=== PATIENT | male | born 1955 | race Caucasian/White ===

== ENCOUNTER 2023-06-07 09:09 | Outpatient (CLI) | payer OTHER, SELFPAY ==
--- NOTE | 2023-06-07 09:37 | MR_ITS ---
WS: [id number] MRI LUMBAR SPINE NONCONTRAST HISTORY: CHRONIC LBP W/LEFT LEG NEUROPATHY COMPARISON: None available. TECHNIQUE: Sagittal and axial multisequence imaging is submitted. Mild increase in the thoracic kyphosis. Less than 2 mm retrolisthesis of L4. Mild disc space narrowing throughout the lumbar spine and desicc ation. No lumbar spine fracture. Small amount of reactive marrow edema in the superior endplate of L4 . Conus terminates normally at L1. L1-L2: Normal. L2-L3: Annular disc bulging with a moderate size LEFT foraminal disc protrusion. Smaller disc protrus ion RIGHT foramen. Mild encroachment upon the ventral thecal sac and subarticular recesses. Mild cent ral, bilateral subarticular recess, RIGHT foraminal and moderate LEFT foraminal stenosis. L3-L4: Diffuse annular disc bulging. Focal proximal LEFT foraminal disc protrusion effacing fat in th e foramina. There is contact on the LEFT L3 and L4 nerve roots. Mild RIGHT foraminal stenosis and mil d subarticular recess encroachment. L4-L5: Mild osteophytic ridging with moderate annular disc bulging. Ligamentum flavum and facet arthr itis. Mild central and LEFT foraminal stenosis. Moderate RIGHT foraminal stenosis due to combination of disc protrusion and osteophyte and facet disease. There is disc contact on the traversing L5 nerve roots. L5-S1: Rudimentary disc. Mild atherosclerosis aorta. No aneurysm. IMPRESSION: 1. 5 nonrib-bearing type vertebral bodies. Rudimentary L5-S1 disc. 2. L2-3: Moderate LEFT foraminal disc protrusion with moderate LEFT foraminal stenosis. Smaller disc in the RIGHT foramen. Mild central and bilateral subarticular recess stenosis. 3. L3-4: Proximal LEFT foraminal disc protrusion. There is significant disc contact on the LEFT L3 an d L4 nerve roots. Mild RIGHT foraminal and subarticular recess encroachment. 4. L4-5: Moderate RIGHT foraminal stenosis due to disc, osteophyte and facet disease. Mild central an d LEFT foraminal stenosis
== END 2023-06-07 09:10 | disposition home or self-care (01) ==
LOC: RAD 09:16
PROVIDERS: PCP Nurse Practitioner; Visit Provider Family Medicine
DX: M54.50 Low back pain, unspecified (principal); G57.92 Unspecified mononeuropathy of left lower limb; M51.36 Other intervertebral disc degeneration, lumbar region
CPT/HCPCS: 72148

== ENCOUNTER → 2024-07-31 14:07 | Outpatient (BNVA) | payer OTHER, SELFPAY | PROVIDERS: PCP Nurse Practitioner; Referring Provider Nurse Practitioner; Visit Provider Student in an Organized Health Care Education/Training Program | DX: D64.9 Anemia, unspecified (principal); D50.9 Iron deficiency anemia, unspecified | CPT/HCPCS: 99204 ==

== ENCOUNTER 2024-09-11 08:31 | Day surgery (SDC) | payer OTHER, SELFPAY ==
[2024-09-11 08:53] VITALS: BP 159/103; PULSE 103; RESP 18; TEMP 36.1; O2SAT 99
[2024-09-11] MEDS: sodium chloride 0.9% 500 ML 15 ML IV (09:00)
--- NOTE | 2024-09-11 09:46 | ANES.PREANE2 ---
Pre-Anesthetic Assessment Height/Weight: Weight 59.874 kg Temp Pulse Resp BP Pulse Ox O2 Del Method 97 F L 103 H 18 159/103 99 Room Air 09/11/24 08:53 09/11/24 08:53 09/11/24 08:53 09/11/24 08:53 09/11/24 08:53 09/11/24 08:53 Preop Diagnosis: Iron Deficiency Anemia Operation Date: 09/11/24 10:00 Proposed Procedures p EGD 87845, 06993, G0105, D64.9, D50.9(Not Applicable) - Jose Miles MD s Colonoscopy(Not Applicable) - Jose Miles MD Familial anesthetic complications: none Was Beta Larry taken within 24 hours: N/A Was Clonidine taken within 24 hours: N/A Last intake: Intake Last Liquid Date 09/10/24 Last Liquid Time 23:00 Last Solid Date 09/09/24 Last Solid Time 18:00 Social Alcohol (0-2 beer per day) and Tobacco cannabis- everyday- none today per patient Exam alert, oriented x 3, clear to auscultation bilaterally and regular rate & rhythm Airway Submandibular: within normal limits Cervical ROM: within normal limits Mallampati: Class II Dentition: chipped and loose Comments: Comments: multiple very poor dentition. 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 Patient is not followed by cardiology, states he saw his PCP last month. None reported Hepatic None reported GI Gastroesophageal Reflux Disease Metabolic Hyperlipidemia and None reported Musc/skel None reported Neuropsych None reported Anesthetic Plan ASA status: 3 Anesthesia: MAC Medications/Allergies Home Medications Medication Instructions Recorded Confirmed Last Taken Type albuterol sulfate 90 mcg/actuation 1 inh inhalation QID PRN Shortness 07/31/24 09/11/24 09/11/24 History aerosol inhaler Of Breath Or Wheezing atorvastatin 40 mg tablet 40 mg PO QPM 07/31/24 09/11/24 09/10/24 History cholecalciferol (vitamin D3) 50 50 mcg PO QPM 07/31/24 09/11/24 09/10/24 History mcg (2,000 unit) capsule lisinopril 10 mg tablet 10 mg PO QPM 07/31/24 09/11/24 09/10/24 History pregabalin 50 mg capsule (Lyrica) 50 mg PO DAILY 07/31/24 09/11/24 09/10/24 History aspirin 81 mg capsule 81 mg PO QPM 09/08/24 09/11/24 09/10/24 History Allergies Allergy/AdvReac Type Severity Reaction Status Date / Time No Known Allergies Allergy Unverified 09/08/24 09:34 Current Medications Generic Name Dose Route Start Last Admin Trade Name Freq PRN Reason Stop Dose Admin Sodium Chloride 500 mls @ 15 mls/hr 09/11/24 08:52 09/11/24 09:00 Sodium Chloride 0.9% IV 09/12/24 08:51 15 mls/hr .Q24H PRN Administration COLONOSCOPY FLUIDS PFSH Anesthesia Family History (Updated 07/31/24 @ 14:35 by ARIELA Guerrero) Father Diabetes Social History (Updated 07/31/24 @ 14:35 by ARIELA Guerrero) Smoking and tobacco/nicotine status: current every day tobacco/nicotine user cigarettes Alcohol intake: current Alcohol intake frequency: 0-2 Drinks per Day Alcohol type: beer Data Anesthesia Cardiac Studies: No Data to Display
--- NOTE | 2024-09-11 09:58 | W.PM.OPSFHP ---
Same Day Surgery H&P Indication for Procedure/HPI DATE OF PROCEDURE: September 11, 2024 CHIEF COMPLAINT/INDICATIONFOR SURGICAL PROCEDURE: iron deficiency anemia PREOP DIAGNOSIS: Iron Deficiency Anemia PLANNED PROCEDURE: Operation Date: 09/11/24 10:00 Proposed Procedures p EGD 36253, 41916, G0105, D64.9, D50.9(Not Applicable) - Jose Miles MD s Colonoscopy(Not Applicable) - Jose Miles MD Medications/Allergies* Home Medications Medication Instructions Recorded Confirmed Type albuterol sulfate 90 mcg/actuation 1 inh inhalation QID PRN Shortness 07/31/24 09/11/24 History aerosol inhaler Of Breath Or Wheezing atorvastatin 40 mg tablet 40 mg PO QPM 07/31/24 09/11/24 History cholecalciferol (vitamin D3) 50 50 mcg PO QPM 07/31/24 09/11/24 History mcg (2,000 unit) capsule lisinopril 10 mg tablet 10 mg PO QPM 07/31/24 09/11/24 History pregabalin 50 mg capsule (Lyrica) 50 mg PO DAILY 07/31/24 09/11/24 History aspirin 81 mg capsule 81 mg PO QPM 09/08/24 09/11/24 History Allergies/Adverse Reactions Allergy/AdvReac Type Severity Reaction Status Date / Time No Known Allergies Allergy Unverified 09/08/24 09:34 Current Medications: Generic Name Dose Route Start Last Admin Trade Name Freq PRN Reason Stop Dose Admin Sodium Chloride 500 mls @ 15 mls/hr 09/11/24 08:52 09/11/24 09:00 Sodium Chloride 0.9% IV 09/12/24 08:51 15 mls/hr .Q24H PRN Administration COLONOSCOPY FLUIDS Pertinent History/Comorbid Conditions* Family History (Updated 07/31/24 @ 14:35 by ARIELA Guerrero) Father Diabetes Father Social History Smoking and tobacco/nicotine status: current every day tobacco/nicotine user cigarettes Alcohol intake: current Alcohol intake frequency: 0-2 Drinks per Day Alcohol type: beer Pertinent Exam Findings alert, oriented x 3, clear to auscultation bilaterally, regular rate & rhythm and procedure specific exam findings abdomen soft, nt, nd Recommendations Surgery/Procedure today Coding Level of Care Code Acute Code for Chg Fwd
[2024-09-11 10:53] VITALS: BP 126/71; PULSE 69; RESP 14; TEMP 36.6; O2SAT 99
--- NOTE | 2024-09-11 10:55 | ECG_ITS ---
[facility]: [facility]24[facility]11 Pat Name: Shilo Castañeda Department: Room: Gender: Male [employer] Lead: : 1955 Requested By: Lasha Dallas Order Number: [id number] Quezada MD: Jak Licona M.D. Measurements Intervals [place] Rate: 62 P: 77 [place]: 152 QRS: 52 QRSD: 97 T: 61 QT: 401 QTc: 410 Interpretive Statements SINUS RHYTHM No previous ECG available for comparison Electronically Signed On 09-12-2024 18:40:35 BRILLIANDEER LOOPER by Jak Licona M.D. [id number]
--- NOTE | 2024-09-11 11:30 | ANE.PACU2 ---
Inpatient post-anesthesia follow up: Airway intact: Yes Vital signs: Temperature 97.8 F Pulse Rate 69 Respiratory Rate 14 Blood Pressure 126/71 Pulse Oximetry 99 Oxygen Delivery Me thod Room Air Oxygen Flow Rate Fraction of Inspir ed Oxygen Hydration adequate: Yes Nausea and vomiting: No Pain level: 1 Mental status: Baseline
== END 2024-09-11 11:30 | disposition home or self-care (01) ==
PROVIDERS: PCP Nurse Practitioner; Visit Provider Student in an Organized Health Care Education/Training Program
PROC: 0DJ08ZZ Inspection of Upper Intestinal Tract, Via Natural or Artificial Opening Endoscopic (ICD-10-PCS; principal; 2024-09-11 10:00)
PROC: 0DJD8ZZ Inspection of Lower Intestinal Tract, Via Natural or Artificial Opening Endoscopic (ICD-10-PCS; CPT 45378; 2024-09-11 10:00)
DX: D50.9 Iron deficiency anemia, unspecified (principal); D12.8 Benign neoplasm of rectum; D12.0 Benign neoplasm of cecum; K29.70 Gastritis, unspecified, without bleeding; J44.9 Chronic obstructive pulmonary disease, unspecified; I10 Essential (primary) hypertension; K21.9 Gastro-esophageal reflux disease without esophagitis; E78.5 Hyperlipidemia, unspecified; F17.210 Nicotine dependence, cigarettes, uncomplicated; Z79.82 Long term (current) use of aspirin
CPT/HCPCS: 43239; 45380; 45385; 88305; 93005; J2704; J3490; J7040

== ENCOUNTER 2024-09-23 10:44 | Emergency (ER) | payer OTHER, SELFPAY ==
[2024-09-23] VITALS (7 sets, daily range): BP systolic 136–156; BP diastolic 88–109; PULSE 96–110; RESP 20–26; TEMP 36.8; O2SAT 97–100; BMI 19.1
--- NOTE | 2024-09-23 11:04 | PC.PHAR ---
[facility]
--- NOTE | 2024-09-23 11:09 | XRR_ITS ---
PROCEDURE INFORMATION: Exam: XR Chest Exam date and time: 09/23/2024 11:12 AM Age: 69 years old Clinical indication: Cough and dyspnea; Prior surgery; Surgery date: 6+ months; Surgery type: Mitral valve; Additional info: Cough, body aches TECHNIQUE: Imaging protocol: Radiologic exam of the chest. Views: 1 view. COMPARISON: No relevant prior studies available. FINDINGS: Tubes, catheters and devices: None. Lungs: Pulmonary emphysema identified within the lungs. The lungs appear otherwise clear. Pleural spaces: No pleural effusion. No pneumothorax. Heart/Mediastinum: Evidence for cardiac valve replacement surgery. The mediastinum appears otherwise unremarkable. Vasculature: Moderate to severe atherosclerotic calcification demonstrated within the aorta. Bones/joints: Sternotomy wires, hardware is demonstrated. Diffusely decreased bone density. Generalized bony degenerative changes. XR/XR chest 1V portable [id number] IMPRESSION: 1. Pulmonary emphysema. 2. Degenerative and postsurgical changes are demonstrated, as described above.
--- NOTE | 2024-09-23 11:10 | W.ED.GENADLT ---
HPI - General Adult General: Chief complaint: Shortness of Breath/Dyspnea Stated complaint: Tachy x 1 week Time Seen by Provider: 09/23/24 10:47 Source: patient Mode of arrival: ambulatory Limitations: no limitations History of Present Illness: Patient is a 69-year-old male presents to ED today with complaint of chills/sweats, body aches, subjective fevers, congestion, cough. Symptoms started around 09/13 after he underwent a diagnostic EGD and colonoscopy for iron deficiency anemia. Patient had a few polyps removed as well as a cecal biopsy for malignant appearing lesion. Patient states since the biopsy he has not had any abdominal pain. He is not having any bloody or black/tarry stools. He has not had any emesis. He was reportedly seen at the ID because he was slightly tachycardic, they referred him to the emergency department for further evaluation. Patient is not having any chest pain. He has had nonproductive cough/chest congestion. Onset (ago): day(s) Relieving factors: none Exacerbating factors: none Associated symptoms: Reports nausea; Deny chest pain, dyspnea, headache(s), rash, palpitations, syncope or vomiting Treatments prior to arrival: none Related Data Home Medications Medication Instructions Recorded Confirmed albuterol sulfate 90 mcg/actuation 1 inh inhalation QID PRN Shortness 07/31/24 09/23/24 aerosol inhaler Of Breath Or Wheezing atorvastatin 40 mg tablet 40 mg PO QPM 07/31/24 09/23/24 cholecalciferol (vitamin D3) 50 50 mcg PO QPM 07/31/24 09/23/24 mcg (2,000 unit) capsule lisinopril 10 mg tablet 10 mg PO QPM 07/31/24 09/23/24 aspirin 81 mg capsule 81 mg PO QPM 09/08/24 09/23/24 enoxaparin 60 mg/0.6 mL 57 mg SUBCUT Q12H 09/23/24 09/23/24 subcutaneous syringe pregabalin 75 mg capsule 75 mg PO BID 09/23/24 09/23/24 warfarin 5 mg tablet See Rx Instructions .Route .COMPLEX 09/23/24 09/23/24 Previous Rx's Medication Instructions Recorded pantoprazole 40 mg tablet,delayed 40 mg PO DAILY 6 weeks #42 tabs 09/11/24 release (Protonix) dexamethasone 6 mg tablet 6 mg PO DAILY #6 tabs 09/23/24 Allergies Allergy/AdvReac Type Severity Reaction Status Date / Time No Known Allergies Allergy Unverified 09/08/24 09:34 Review of Systems Const: Reports: fever(s) (subjective), chills and body aches Eyes: Denies: change in vision, blurry vision or photophobia ENMT: Reports: nasal congestion; Denies: ear or mastoid pain, nasal discharge or sinus pain Card: Denies: chest pain, palpitations, irregular heart rhythm, lightheadedness, syncope or dyspnea on exertion Resp: Reports: non-productive cough and chest congestion; Denies: dyspnea, productive cough, wheezing, pain on inspiration or hemoptysis GI: Reports: nausea; Denies: abdominal pain, vomiting, heartburn or diarrhea : Denies: flank pain, difficulty urinating or dysuria Musc: Denies: neck pain, back pain, extremity pain, extremity swelling or joint pain Skin/Breast: Denies: rash Neuro: Denies: headache(s), numbness in extremities, weakness in extremities, sensory changes or dizziness PFSH ED PFSH: Family History Father Diabetes Social History Smoking and tobacco/nicotine status: current every day tobacco/nicotine user cigarettes Alcohol intake: current Alcohol intake frequency: 0-2 Drinks per Day Alcohol type: beer Physical Exam Const: COMMON NORMALS: no acute distress, average body habitus, patient oriented x3, no limitations, alert and well nourished GENERAL APPEARANCE: cooperative ORIENTATION/CONSCIOUSNESS: Yes awake, Yes oriented to person, Yes oriented to place and Yes oriented to time HENMT: COMMON NORMALS: normocephalic and atraumatic HEAD & SCALP: normocephalic and atraumatic Neck/C-Spine: COMMON NORMALS: full ROM, no lymphadenopathy, supple and no meningeal signs Chest: COMMONS NORMALS: normal inspection of the chest and normal palpation of entire chest wall Resp: COMMON NORMALS: normal respiratory effort and clear to auscultation bilaterally AUSCULTATION: clear to auscultation bilaterally Cardio: COMMON NORMALS: regular rate RATE: regular rate and tachycardic (mild 102) GI: COMMON NORMALS: Normal to inspection, nondistended, normoactive bowel sounds present, Soft to palpation, non-tender, No hepatosplenomegaly present and no masses PALPATION: Yes Soft to palpation and Yes No hepatosplenomegaly present : COMMON NORMALS: Yes no CVA tenderness BLADDER/KIDNEY EXAM: Yes no CVA tenderness Back/Pelvis: COMMON NORMALS: no CVA tenderness and thoracic and lumbar spine normal to inspection Extremity: COMMON NORMALS: normal to inspection, no clubbing, cyanosis or edema, no calf tenderness and no pedal edema GENERAL: Yes normal exam except as noted Neuro: COMMON NORMALS: patient oriented x3, moves all extremities, no focal motor deficits and no sensory deficits noted SENSORIUM/ORIENTATION: Yes alert, Yes oriented to person, Yes oriented to place and Yes oriented to time MENINGEAL SIGNS: Yes no meningeal signs Skin: COMMON NORMALS: no rashes or lesions noted GENERAL SKIN EXAM: no rashes or lesions noted Course Vital Signs: Vital signs: Vital Signs Temperature 98.3 F 09/23/24 10:45 Pulse Rate 101 H 09/23/24 13:30 Respiratory Rate 26 H 09/23/24 13:30 Blood Pressure 156/92 09/23/24 13:30 Pulse Oximetry 99 09/23/24 13:30 Oxygen Delivery Me thod Room Air 09/23/24 13:30 [facility] - General Adult Medical Decision Making Patient is a 69-year-old male here for chills/sweats, body aches, subjective fevers, congestion, cough. Vital signs are stable. At times he has been very minimally tachycardic-worse the postional change. His CXR is unremarkable. He is a daily smoker. He does have chronic pulmonary emphysema. Blood work overall is nonactionable. He has a normal white count. His procalcitonin is normal. He is therapeutic on his INR (takes this for mechanical heart valve). He is not having any chest pain or palpitations. Chemistry overall is unremarkable. Mild elevation of his gap at 22. UA does not appear acutely infected. He does appear somewhat dehydrated. Recommending oral hydration at home. He is not having any vomiting. Due to IV national fluid shortage and restrictions he was not given IV fluids here. He does have some blood in his urine. He has not had any abdominal pain. Again he is an everyday smoker. [facility] This continues, recommend cystoscopy. Respiratory panel collected and he did test positive for COVID-19. Outside window for Paxlovid. Will place on Dexamethasone. Return precautions discussed. Medical Records I reviewed the patient's medical records. Lab Data I reviewed the patient's lab results. 09/23/24 11:20 09/23/24 11:20 Radiology Impressions Chest X-Ray 09/23/24 11:09 IMPRESSION: 1. Pulmonary emphysema. 2. Degenerative and postsurgical changes are demonstrated, as described above. Laboratory Results WBC 7.88 10^3/uL (3.29-11.43) 09/23/24 11:20 RBC 4.54 10^6/uL (3.85-5.65) 09/23/24 11:20 Hgb 14.30 g/dL (11.27-16.99) 09/23/24 11:20 Hct 41.1 % (37-53) 09/23/24 11:20 MCV 90.5 fl (82-101) 09/23/24 11:20 MCH 31.5 pg (27-33) 09/23/24 11:20 MCHC 34.8 g/dL (30-55) 09/23/24 11:20 RDW 11.6 % (12.1-15.1) L 09/23/24 11:20 Plt Count 316 10^3/cmm (157-399) 09/23/24 11:20 MPV 9.9 fL (7.4-10.4) 09/23/24 11:20 Neut % (Auto) 72.2 % 09/23/24 11:20 Lymph % (Auto) 14.1 % 09/23/24 11:20 Butts % (Auto) 12.2 % 09/23/24 11:20 Eos % (Auto) 0.5 % 09/23/24 11:20 Baso % (Auto) 0.6 % 09/23/24 11:20 Neut # (Auto) 5.69 10^3/uL (1.8-7.7) 09/23/24 11:20 Lymph # (Auto) 1.1 10^3/uL (0.8-4.8) 09/23/24 11:20 Butts # (Auto) 1.0 10^3/uL (0.2-0.9) H 09/23/24 11:20 Eos # (Auto) 0.0 10^3/uL (0.0-0.8) 09/23/24 11:20 Baso # (Auto) 0.1 10^3/uL (0.0-0.1) 09/23/24 11:20 Nucleated RBC % (auto) 0 % 09/23/24 11:20 Nucleated RBCs # 0.0 /100WBC 09/23/24 11:20 PT 34.70 SECONDS (12.1-14.9) H 09/23/24 11:20 INR 3.23 (0.8-1.2) H 09/23/24 11:20 Sodium 138 mmol/L (136-145) 09/23/24 11:20 Potassium 4.1 mmol/L (3.5-5.1) 09/23/24 11:20 Chloride 101 mmol/L (98-107) 09/23/24 11:20 Carbon Dioxide 19 mmol/L (22-29) L 09/23/24 11:20 Anion Gap 22.1 (5-19) H 09/23/24 11:20 BUN 16 mg/dL (8-23) 09/23/24 11:20 Creatinine 0.7 mg/dL (0.7-1.2) 09/23/24 11:20 GFR Calculation 112.1 mL/min (90-130) 09/23/24 11:20 Glucose 84 mg/dL (65-115) 09/23/24 11:20 Calculated Osmolality 286 mOsm/kg (285-295) 09/23/24 11:20 Calcium 9.5 mg/dL (8.5-10.5) 09/23/24 11:20 Total Bilirubin 0.8 mg/dL (0.15-1.2) 09/23/24 11:20 AST 19 U/L (0-40) 09/23/24 11:20 ALT 8 U/L (0-41) 09/23/24 11:20 Alkaline Phosphatase 92 U/L (40-130) 09/23/24 11:20 Total Protein 7.2 g/dL (6.6-8.7) 09/23/24 11:20 Albumin 4.5 g/dL (3.5-5.2) 09/23/24 11:20 Globulin 2.7 g/dL (1.3-4.6) 09/23/24 11:20 Procalcitonin 0.06 ng/mL (0-0.5) 09/23/24 11:20 Urine Color Dark yellow (Yellow) A 09/23/24 13:10 Urine Appearance Clear (CLEAR) 09/23/24 13:10 Urine pH 6.0 (5-7) 09/23/24 13:10 Ur Specific White 1.031 (1.005-1.030) H 09/23/24 13:10 Urine Protein 2+ (Negative) A 09/23/24 13:10 Urine Glucose (UA) Negative (Normal) 09/23/24 13:10 Urine Ketones 4+ (Negative) 09/23/24 13:10 Urine Blood Negative (Negative) 09/23/24 13:10 Urine Nitrate Negative (Negative) 09/23/24 13:10 Urine Bilirubin 2+ (Negative) H 09/23/24 13:10 Urine Urobilinogen 1.0 mg/dL (Negative) 09/23/24 13:10 Ur Leukocyte Esterase Negative (Negative) 09/23/24 13:10 Urine RBC 21-50 /hpf (0-2) H 09/23/24 13:10 Urine WBC 0-5 /hpf (0-5) 09/23/24 13:10 Ur Squamous Epith Cells 0-5 /hpf (0-5) 09/23/24 13:10 Amorphous Sediment Not Reportable 09/23/24 13:10 Urine Bacteria None seen /hpf (NONE) 09/23/24 13:10 Hyaline Casts 12.81 /lpf 09/23/24 13:10 Adenovirus (PCR) Not detected (NOT DETECT) 09/23/24 12:07 C. pneumoniae DNA (PCR) Not detected (NOT DETECT) 09/23/24 12:07 Coronavirus 229E (PCR) Not detected (NOT DETECT) 09/23/24 12:07 Human Metapneumovir PCR Not detected (NOT DETECT) 09/23/24 12:07 Influenza A (H1) PCR Not detected (NOT DETECT) 09/23/24 12:07 Influ A (H1/09) PCR Not detected (NOT DETECT) 09/23/24 12:07 Influenza A (H3) PCR Not detected (NOT DETECT) 09/23/24 12:07 Influenza Type A Ag negative (Negative) 09/23/24 11:14 Influenza Type A (PCR) Not detected (NOT DETECT) 09/23/24 12:07 Influenza Type B Ag negative (Negative) 09/23/24 11:14 Influenza Type B (PCR) Not detected (NOT DETECT) 09/23/24 12:07 M. pneumoniae (PCR) Not detected (NOT DETECT) 09/23/24 12:07 Parainfluenza 1 (PCR) Not detected (NOT DETECT) 09/23/24 12:07 Parainfluenza 2 (PCR) Not detected (NOT DETECT) 09/23/24 12:07 Parainfluenza 3 (PCR) Not detected (NOT DETECT) 09/23/24 12:07 Parainfluenza 4 (PCR) Not detected (NOT DETECT) 09/23/24 12:07 RSV Type A (PCR) Not detected (NOT DETECT) 09/23/24 12:07 RSV Type B (PCR) Not detected (NOT DETECT) 09/23/24 12:07 Entero/Rhino (PCR) Not detected (NOT DETECT) 09/23/24 12:07 SARS-CoV-2 (PCR) Detected (NOT DETECT) A 09/23/24 12:07 SARS-CoV-2 Ag (Rapid) negative (Negative) 09/23/24 11:14 All radiology interpretation(s) finalized by discharge Discharge Plan Discharge Patient Disposition: Home Clinical Impression: Dehydration, COVID-19, Hematuria Condition: Stable Prescriptions: New dexamethasone 6 mg tablet 6 mg PO DAILY Qty: 6 0RF No Action lisinopril 10 mg tablet 10 mg PO QPM atorvastatin 40 mg tablet 40 mg PO QPM albuterol sulfate 90 mcg/actuation HFA aerosol inhaler 1 inh inhalation QID PRN (Reason: Shortness Of Breath Or Wheezing) cholecalciferol (vitamin D3) 50 mcg (2,000 unit) capsule 50 mcg PO QPM warfarin 5 mg Tablet See Rx Instructions .ROUTE .COMPLEX Rx Instructions: take 7.5 mg by mouth on tuesdays and take 5mg tablet on all other days enoxaparin 60 mg/0.6 mL Syringe 57 mg SUBCUT Q12H pregabalin 75 mg Capsule 75 mg PO BID aspirin 81 mg Capsule 81 mg PO QPM pantoprazole [Protonix] 40 mg tablet,delayed release (DR/EC) 40 mg PO DAILY 42 Days Qty: 42 0RF Discharge Orders: Discharge ED (Routine); Ordered 09/23/24 Ordered By: Belkys Livingston Referrals: Mary Kate Kim, PHOTOENGRAVER [Primary Care Provider] - Patient Instructions: COVID-19 (Coronavirus Disease 2019) (ED) Activity Restrictions/Additional Instructions: As we discussed, I recommend pushing fluids at home as much as possible as there is concern for mild dehydration. Remainder of symptoms are related to COVID-19. Patient may return to the emergency department for any worsening symptoms or concerns you may have. I hope he begins to feel better soon. Coding Level of Care Code ED Supervisor Customer Services for Arslan Greco
[2024-09-23 11:31] LABS: Basophils # 0.1 10^3/uL (0.0-0.1); Basophils % 0.6 %; Eosinophils % 0.5 %; Hematocrit 41.1 % (37-53); Lymphocytes # 1.1 10^3/uL (0.8-4.8); Lymphocytes % 14.1 %; Mean Corpuscular HGB Conc 34.8 g/dL (30-55); Mean Corpuscular Hemoglobin 31.5 pg (27-33); Mean Corpuscular Volume 90.5 fl (82-101); Mean Platelet Volume 9.9 fL (7.4-10.4); Monocytes % 12.2 %; Neutrophils # 5.69 10^3/uL (1.8-7.7); Neutrophils % 72.2 %; Nucleated Red Blood Cells % 0 %; Platelet Count 316 10^3/cmm (157-399); Red Blood Count 4.54 10^6/uL (3.85-5.65); Red Cell Distribution Width 11.6 % (12.1-15.1); White Blood Count 7.88 10^3/uL (3.29-11.43)
[2024-09-23 11:35] LABS: Influenza A by IFA negative (Negative); Influenza B by IFA negative (Negative)
[2024-09-23 11:36] LABS: SARS Covid-2 Antigen negative (Negative)
[2024-09-23 11:55] LABS: INR 3.23 (0.8-1.2)
[2024-09-23 12:01] LABS: Slide Review Slide Review Perform
[2024-09-23 12:04] LABS: Alanine Aminotransferase 8 U/L (0-41); Albumin Level 4.5 g/dL (3.5-5.2); Alkaline Phosphatase 92 U/L (40-130); Anion Gap 22.1 (5-19); Aspartate Amino Transferase 19 U/L (0-40); Blood Urea Nitrogen 16 mg/dL (8-23); Calcium 9.5 mg/dL (8.5-10.5); Carbon Dioxide 19 mmol/L (22-29); Chloride 101 mmol/L (98-107); Globulin 2.7 g/dL (1.3-4.6); Glomerular Filtration Rate 112.1 mL/min (90-130); Glucose 84 mg/dL (65-115); Osmolality Calculated 286 mOsm/kg (285-295); Potassium 4.1 mmol/L (3.5-5.1); Sodium 138 mmol/L (136-145); Total Bilirubin 0.8 mg/dL (0.15-1.2); Total Protein 7.2 g/dL (6.6-8.7)
[2024-09-23 12:10] LABS: Procalcitonin 0.06 ng/mL (0-0.5)
--- NOTE | 2024-09-23 12:10 | ECG_ITS ---
[employer] Test Date: 2024-09-23 Pat Name: Shilo Castañeda Department: Room: Gender: Male [employer]icer: : 1955 Requested By: Belkys Livingston Order Number: [id number] Quezada MD: Jak Licona M.D. Measurements Intervals [place] Rate: 94 P: 78 [place]: 121 QRS: 71 QRSD: 79 T: 67 QT: 354 QTc: 444 Interpretive Statements SINUS RHYTHM POSSIBLE LEFT ATRIAL ENLARGEMENT [-0.1mV P-WAVE IN V1/V2] SEPTAL MYOCARDIAL INFARCTION , OF INDETERMINATE AGE [40+ ms Q WAVE IN V1/V2] Compared to ECG 09/11/2024 10:55:25 Myocardial infarct finding now present Electronically Signed On 09-23-2024 21:20:13 RN TRANSITIONAL by Jak Licona M.D. [id number]
[2024-09-23 13:35] LABS: Bilirubin Urine 2+ (Negative); Blood Urine Negative (Negative); Glucose Urine UA Negative (Normal); Ketones Urine 4+ (Negative); Leukocyte Esterase Urine Negative (Negative); Nitrate Urine Negative (Negative); Protein Urine 2+ (Negative); Urine Appearance Clear (CLEAR); Urine Color Dark Yellow (Yellow)
[2024-09-23 13:40] LABS: Add Urine Microscopic? YES; Bacteria Urine None Seen /hpf; Hyaline Casts Urine 12.81 /lpf; RBC Urine 21-50 /hpf (0-2); Squamous Epithelial Cell Urine 0-5 /hpf (0-5); WBC Urine 0-5 /hpf (0-5)
[2024-09-23 13:51] LABS: Specific Gravity, Urine 1.031 (1.005-1.030)
[2024-09-23 13:52] LABS: UA Slide Review UA Slide Review Perf
[2024-09-23 14:05] LABS: Adenovirus Not Detected (NOT DETECT); Chlamydia Pneumoniae Not Detected (NOT DETECT); Coronavirus 229E,HKU1,NL63,OC4 Not Detected (NOT DETECT); Human Metapneumovirus Not Detected (NOT DETECT); Human Rhinovirus/Enterovirus Not Detected (NOT DETECT); Influenza A Not Detected (NOT DETECT); Influenza A H1 Not Detected (NOT DETECT); Influenza A H1-2009 Not Detected (NOT DETECT); Influenza A H3 Not Detected (NOT DETECT); Influenza B Not Detected (NOT DETECT); Mycoplasma Pneumoniae Not Detected (NOT DETECT); Parainfluenza Virus Type 1 Not Detected (NOT DETECT); Parainfluenza Virus Type 2 Not Detected (NOT DETECT); Parainfluenza Virus Type 3 Not Detected (NOT DETECT); Parainfluenza Virus Type 4 Not Detected (NOT DETECT); Respiratory Syncytial Virus A Not Detected (NOT DETECT); Respiratory Syncytial Virus B Not Detected (NOT DETECT)
[2024-09-23 14:11] LABS: SARS-COV-2 Detected (NOT DETECT)
== END 2024-09-23 14:35 | disposition home or self-care (01) ==
PROVIDERS: Emergency Provider Physician Assistant; PCP Nurse Practitioner
DX: E86.0 Dehydration (principal); U07.1 COVID-19; R31.9 Hematuria, unspecified; Z11.52 Encounter for screening for COVID-19; Z79.01 Long term (current) use of anticoagulants; Z79.82 Long term (current) use of aspirin; F17.210 Nicotine dependence, cigarettes, uncomplicated
CPT/HCPCS: 71045; 80053; 81001; 84145; 85025; 85610; 87426; 87486; 87581; 87633; 87804; 93005; 99285

== ENCOUNTER 2024-11-06 09:26 | Oncology outpatient (recurring) (ONCR) | payer OTHER, SELFPAY ==
[2024-11-06 10:39] LABS: Basophils # 0.1 10^3/uL (0.0-0.1); Basophils % 1.6 %; Eosinophils # 0.1 10^3/uL (0.0-0.8); Eosinophils % 2.4 %; Hematocrit 33.2 % (37-53); Lymphocytes # 0.8 10^3/uL (0.8-4.8); Lymphocytes % 14.2 %; Mean Corpuscular HGB Conc 33.7 g/dL (30-55); Mean Platelet Volume 9.4 fL (7.4-10.4); Monocytes # 0.7 10^3/uL (0.2-0.9); Monocytes % 11.8 %; Neutrophils # 4.03 10^3/uL (1.8-7.7); Neutrophils % 69.8 %; Nucleated Red Blood Cells % 0 %; Platelet Count 256 10^3/cmm (157-399); Red Blood Count 3.61 10^6/uL (3.85-5.65); Red Cell Distribution Width 12.6 % (12.1-15.1); Reticulocyte % 1.4 % (0.5-2.0); White Blood Count 5.77 10^3/uL (3.29-11.43)
[2024-11-06 10:55] LABS: Carcinoembryonic Antigen 1.3 ng/mL (0.0-4.7)
[2024-11-06 11:06] LABS: Alanine Aminotransferase 12 U/L (0-41); Albumin Level 3.9 g/dL (3.5-5.2); Alkaline Phosphatase 111 U/L (40-130); Anion Gap 16.7 (5-19); Aspartate Amino Transferase 26 U/L (0-40); Blood Urea Nitrogen 6 mg/dL (8-23); Calcium 8.7 mg/dL (8.5-10.5); Carbon Dioxide 23 mmol/L (22-29); Chloride 94 mmol/L (98-107); Creatinine Clr Calc Pharmacy 80.4195; Globulin 2.7 g/dL (1.3-4.6); Glomerular Filtration Rate 112.1 mL/min (90-130); Glucose 108 mg/dL (65-115); Lactate Dehydrogenase 250 U/L (135-225); Osmolality Calculated 266 mOsm/kg (285-295); Potassium 4.7 mmol/L (3.5-5.1); Sodium 129 mmol/L (136-145); Total Bilirubin 0.4 mg/dL (0.15-1.2); Total Protein 6.6 g/dL (6.6-8.7)
[2024-11-06 11:42] LABS: Ferritin 30 ng/mL (30-400); Iron 33 ug/dL (59-158); Percent Saturation 10.1 % (20-50); Total Iron Binding Capacity 324 mcg/dl; Unsaturated Iron Binding 291 ug/dL (112-347)
[2024-11-06 11:57] LABS: Vitamin B12 544 pg/mL (232-1245)
[2024-11-06 12:22] LABS: Folate Level 14.4 ng/mL (4.5-32.2)
== END 2024-11-14 23:59 | disposition home or self-care (01) ==
PROVIDERS: PCP Nurse Practitioner; Visit Provider Internal Medicine
DX: K63.89 Other specified diseases of intestine (principal); R68.89 Other general symptoms and signs; D50.9 Iron deficiency anemia, unspecified; F17.210 Nicotine dependence, cigarettes, uncomplicated; Z95.2 Presence of prosthetic heart valve; Z79.01 Long term (current) use of anticoagulants; Z71.6 Tobacco abuse counseling
CPT/HCPCS: 36415; 80053; 82378; 82607; 82728; 82746; 83540; 83550; 83615; 85025; 85045; 99204

== ENCOUNTER → 2024-11-26 15:11 | Outpatient (BNVA) | payer OTHER, SELFPAY | PROVIDERS: PCP Nurse Practitioner; Visit Provider Internal Medicine Cardiovascular Disease | DX: Z95.2 Presence of prosthetic heart valve (principal); I35.9 Nonrheumatic aortic valve disorder, unspecified | CPT/HCPCS: 99214 ==

== ENCOUNTER 2024-11-27 12:28 | Oncology outpatient (recurring) (ONCR) | payer OTHER, SELFPAY ==
[2024-11-20] MEDS: iohexol 350 mg/mL 500 mL Btl (per mL) IV (10:33)
[2024-11-20] MEDS: iohexol 350 mg/mL 500 mL Btl (per mL) PO (10:33)
--- NOTE | 2024-11-20 10:45 | CTR_ITS ---
PROCEDURE INFORMATION: Exam: CT Chest With Contrast; Diagnostic Exam date and time: 11/20/2024 10:25 AM Age: 69 years old Clinical indication: Condition or disease; Other: Colon cancer; Prior surgery; Surgery date: 6+ months; Surgery type: Heart valve, appy TECHNIQUE: Imaging protocol: Diagnostic computed tomography of the chest with contrast. Radiation optimization: All CT scans at this facility use at least one of these dose optimization techniques: automated exposure control; mA and/or kV adjustment per patient size (includes targeted exams where dose is matched to clinical indication); or iterative reconstruction. Contrast material: OMNI 350; Contrast volume: 100 ml; Contrast route: INTRAVENOUS (IV); COMPARISON: CT lung screening [id number] 10/13/2024 2:14 PM RADIATION DOSE METRICS: Total DLP (mGy-cm): 492.42 FINDINGS: Trachea: Unremarkable. Lungs: There are mild to moderate emphysematous changes throughout the lungs. No focal consolidation is seen. No suspicious pulmonary nodule is seen. Pleural spaces: No significant pleural effusion. No pneumothorax. Heart: Normal in size. No significant pericardial effusion. An aortic valve prosthesis is present. Mediastinal space: No pathologically enlarged lymph nodes. Lymph nodes: Unremarkable. No enlarged lymph nodes. Vasculature: The ascending aorta is ectatic with moderate diffuse atherosclerotic calcification. No aortic aneurysm. Mild to moderate coronary arterial calcification. Bones/joints: Intact. No acute fracture. Sternotomy wires are noted. There are mild degenerative changes involving the thoracic spine. Soft tissues: Unremarkable. Other findings: Visualized upper abdominal structures are unremarkable. COMMENTS: The presence of pulmonary emphysema on CT is an independent risk factor for lung cancer. In the absence of a history or active diagnosis of lung cancer, it is recommended that this patient with emphysema be evaluated for enrollment in a low dose CT lung cancer screening program. PROCEDURE INFORMATION: Exam: CT Abdomen And Pelvis With Contrast Exam date and time: 11/20/2024 10:25 AM Age: 69 years old Clinical indication: Condition or disease; Other: Colon cancer; Prior surgery; Surgery date: 6+ months; Surgery type: Heart valve, appy TECHNIQUE: Imaging protocol: Computed tomography of the abdomen and pelvis with contrast. Radiation optimization: All CT scans at this facility use at least one of these dose optimization techniques: automated exposure control; mA and/or kV adjustment per patient size (includes targeted exams where dose is matched to clinical indication); or iterative reconstruction. Contrast material: OMNI 350; Contrast volume: 100 ml; Contrast route: INTRAVENOUS (IV); COMPARISON: CT lung screening [id number] 10/13/2024 2:14 PM RADIATION DOSE METRICS: Total DLP (mGy-cm): 492.42 FINDINGS: Lungs: Visualized lung bases are clear. Liver: Several simple cysts are seen within the liver. There are also several subcentimeter hypodense foci within the liver, too small to characterize accurately by CT. Similar findings were seen on the prior CT chest, incompletely imaged on the prior study. Gallbladder and biliary ducts: No radiopaque stones. No significant biliary ductal dilatation. Pancreas: Unremarkable. Spleen: Unremarkable. Adrenal glands: Mildly thickened bilaterally, similar in appearance compared to the prior study. Kidneys and ureters: There are a few tiny bilateral renal calculi. There are small simple appearing cysts bilaterally. No significant hydronephrosis. Stomach and bowel: There is a moderate amount of fecal material within the ascending and transverse colon. The descending and sigmoid colon are relatively decompressed. There are diverticula involving the sigmoid colon without significant surrounding inflammation to suggest acute diverticulitis. Metallic foci are seen within the cecum and proximal ascending colon which may be postsurgical. Appendix: Not identified with certainty. No evidence of appendicitis. Intraperitoneal space: Unremarkable. No free air. No significant fluid collection. Vasculature: Normal in caliber with moderate to extensive diffuse atherosclerotic calcification. No abdominal aortic aneurysm. Lymph nodes: Subcentimeter retroperitoneal lymph nodes are noted. . No enlarged lymph nodes. Urinary bladder: Incompletely distended with moderate diffuse thickening of the wall, which may be due to incomplete distension. Other pathology cannot be excluded. Reproductive: The prostate gland is mildly enlarged with central calcifications noted. Bones/joints: Intact. No acute fracture. There are degenerative changes involving the lumbar spine and bilateral hips. Soft tissues: Unremarkable. CT/CT chest abdpel w/*[id number] IMPRESSION: 1. COPD. 2. Status post sternotomy with aortic valve prosthesis in place. 3. Ectatic ascending aorta with moderate atherosclerotic calcification. 4. Mild to moderate coronary arterial calcification. IMPRESSION: 1. Moderate amount of fecal material in the right hemicolon. No significant bowel dilatation or evidence for obstruction. 2. Sigmoid diverticulosis without compelling CT evidence for acute diverticulitis. 3. Metallic foci within the cecum and ascending colon, likely iatrogenic given the patient's clinical indication of colon carcinoma. No discrete suspicious mass is seen on this study. Please correlate with recent colonoscopy. 4. Multiple simple appearing cysts within the liver as well as subcentimeter hypodense foci throughout the liver which are too small to characterize accurately by CT. Similar findings were present on the prior CT chest from October 13, 2024. 5. Moderate diffuse thickening of the wall of the urinary bladder which could be due to incomplete distension. Other pathology, such as cystitis, cannot be excluded. Please correlate clinically. 6. Stable prominent thickening of the adrenal glands bilaterally. 7. Moderate to extensive diffuse atherosclerotic calcification throughout the abdominal aorta. 8. Renal nephrolithiasis. No significant hydronephrosis. 9. Small bilateral renal cysts for which no further follow-up is recommended by MIPS criteria. COMMENTS: Consistent with the [employer]'s Incidental Findings Committee white paper (J Am Benjamin Radiol 2018): Any incidental renal lesion less than 1 cm or classified as too small to characterize, or any incidental cystic renal lesion characterized as simple-appearing, is likely benign. No follow-up imaging is recommended for these lesions per consensus recommendations based on imaging criteria.
== END 2024-12-15 23:59 | disposition home or self-care (01) ==
PROVIDERS: PCP Nurse Practitioner; Visit Provider Internal Medicine
DX: K63.89 Other specified diseases of intestine (principal); D50.9 Iron deficiency anemia, unspecified; Z95.2 Presence of prosthetic heart valve; F17.210 Nicotine dependence, cigarettes, uncomplicated; Z79.01 Long term (current) use of anticoagulants; Z71.6 Tobacco abuse counseling
CPT/HCPCS: 71260; 74177; 99213

== ENCOUNTER 2024-12-29 12:45 | Oncology outpatient (recurring) (ONCR) | payer OTHER, SELFPAY ==
[2024-12-18 13:58] LABS: Basophils # 0.1 10^3/uL (0.0-0.1); Basophils % 1.8 %; Eosinophils # 0.1 10^3/uL (0.0-0.8); Eosinophils % 2.3 %; Hematocrit 38.4 % (37-53); Lymphocytes # 1.1 10^3/uL (0.8-4.8); Lymphocytes % 18.2 %; Mean Corpuscular HGB Conc 34.1 g/dL (30-55); Mean Corpuscular Hemoglobin 30.7 pg (27-33); Mean Corpuscular Volume 89.9 fl (82-101); Mean Platelet Volume 9.4 fL (7.4-10.4); Monocytes # 0.7 10^3/uL (0.2-0.9); Monocytes % 11.3 %; Neutrophils # 3.97 10^3/uL (1.8-7.7); Neutrophils % 66.2 %; Nucleated Red Blood Cells % 0 %; Platelet Count 296 10^3/cmm (157-399); Red Blood Count 4.27 10^6/uL (3.85-5.65); Red Cell Distribution Width 13.1 % (12.1-15.1)
[2024-12-18 14:30] LABS: Carcinoembryonic Antigen 1.2 ng/mL (0.0-4.7)
[2024-12-18 14:41] LABS: Alanine Aminotransferase 11 U/L (0-41); Albumin Level 4.6 g/dL (3.5-5.2); Alkaline Phosphatase 98 U/L (40-130); Anion Gap 15.3 (5-19); Aspartate Amino Transferase 21 U/L (0-40); Blood Urea Nitrogen 12 mg/dL (8-23); Calcium 9.1 mg/dL (8.5-10.5); Carbon Dioxide 24 mmol/L (22-29); Chloride 95 mmol/L (98-107); Globulin 2.9 g/dL (1.3-4.6); Glomerular Filtration Rate 96.1 mL/min (90-130); Glucose 92 mg/dL (65-115); Lactate Dehydrogenase 265 U/L (135-225); Osmolality Calculated 269 mOsm/kg (285-295); Potassium 4.3 mmol/L (3.5-5.1); Sodium 130 mmol/L (136-145); Total Bilirubin 0.7 mg/dL (0.15-1.2); Total Protein 7.5 g/dL (6.6-8.7)
--- NOTE | 2024-12-29 12:45 | USCV_ITS ---
Shilo Castañeda Age: 69 Gender: M : 1955 Exam Date: 12/29/2024 12:53 Ordering Phys: Gerard Faith MD ([email or web address]) Technologist: Exam Location: [facility] [place] Indication: mechanical ao pros BP: 130 / 75 HR: 86 Rhythm: Sinus Technical Quality: Adequate MEASUREMENTS (Male / Female) Normal Values 2D ECHO LV Diastolic Diameter PLAX 3.4 cm 4.2 - 5.9 / 3.9 - 5.3 cm IVS Diastolic Thickness 1.1 cm 0.6 - 1.0 / 0.6 - 0.9 cm IVS Systolic Thickness 1.5 cm LVPW Diastolic Thickness 1.4 cm 0.6 - 1.0 / 0.6 - 0.9 cm LVPW Systolic Thickness 2.0 cm LVOT Diameter 2.0 cm LV Ejection Fraction 2D Teich 53.6 % LV Ejection Fraction MOD 2C 72.1 % LV Ejection Fraction 2C AL 72.3 % LA Diameter 3.5 cm RA Systolic Volume 4C AL 43.8 ml RA Systolic Volume 4C MOD 40.9 ml Aorta at Sinotubular Diameter 2.6 cm IVC Diameter 1.6 cm M-MODE LA Ao Ratio MM 1.4 MV E Point Septal Separation 1.6 cm AV Cusp Separation MM 1.5 cm DOPPLER AV Peak Velocity 292.3 cm/s LVOT Peak Velocity 88.0 cm/s AV Area Cont Eq vti 1.3 cm squared AV Area Cont Eq pk 1.0 cm squared MV Peak Velocity 130.0 cm/s TV Peak Velocity 269.0 cm/s TR Peak Velocity 314.0 cm/s TR Peak Gradient 39.4 mmHg PV Peak Velocity 81.0 cm/s FINDINGS Left Ventricle Normal left ventricular size, systolic function and wall thickness, with no regional wall motion abnormalities. Left ventricular ejection fraction is estimated at 55 %. Grade II/IV diastolic dysfunction, moderately elevated filling pressures. Right Ventricle The right ventricle is normal in size and function. Right Atrium The right atrium is normal in size. Left Atrium The left atrium is normal in size. Mitral Valve Severely thickened mitral valve. Moderate mitral annular calcification. No mitral valve stenosis. Moderate mitral valve regurgitation. Aortic Valve Severe aortic valve calcification. Moderate aortic valve stenosis, mean gradient 17.2 mmHg, THALIA 1.3 cm squared. Trace aortic valve regurgitation. Tricuspid Valve Trace tricuspid valve regurgitation. Pulmonic Valve Structurally normal pulmonic valve without significant stenosis. There is no pulmonic regurgitation. Pericardium Normal pericardium without effusion. Aorta Normal ascending aorta dimension. IVC The inferior vena cava appears normal. CONCLUSIONS Normal left ventricular size, systolic function and wall thickness, with no regional wall motion abnormalities. Left ventricular ejection fraction is estimated at 55 %. Grade II/IV diastolic dysfunction, moderately elevated filling pressures. Severe aortic valve calcification. Moderate aortic valve stenosis, mean gradient 17.2 mmHg, THALIA 1.3 cm squared. Trace aortic valve regurgitation. Severely thickened mitral valve. Moderate mitral annular calcification. No mitral valve stenosis. Moderate mitral valve regurgitation. There is no pericardial effusion. Right atrial pressure is around 5 mm of mercury. Gerard Faith MD (Electronically Signed) Final Date: 11 January 2025 16:37 S
== END 2025-01-14 23:59 | disposition home or self-care (01) ==
LOC: ONCMED 12-30 09:34
PROVIDERS: Internal Medicine; PCP Nurse Practitioner; Visit Provider Internal Medicine Cardiovascular Disease
DX: Z53.9 Procedure and treatment not carried out, unspecified reason; I70.0 Atherosclerosis of aorta; I35.2 Nonrheumatic aortic (valve) stenosis with insufficiency; I34.81 Nonrheumatic mitral (valve) annulus calcification; I34.0 Nonrheumatic mitral (valve) insufficiency; Z95.2 Presence of prosthetic heart valve; I35.9 Nonrheumatic aortic valve disorder, unspecified
CPT/HCPCS: 36415; 80053; 82378; 83615; 85025; 93306; 99213

== ENCOUNTER 2025-04-23 11:27 | Oncology outpatient (recurring) (ONCR) | payer OTHER, SELFPAY ==
[2025-04-23 11:46] LABS: Hematocrit 33.8 % (37-53); Hemoglobin 11.60 g/dL (11.27-16.99); Mean Corpuscular HGB Conc 34.3 g/dL (30-55); Mean Corpuscular Hemoglobin 31.9 pg (27-33); Mean Corpuscular Volume 92.9 fl (82-101); Nucleated Red Blood Cells % 0 %; Platelet Count 207 10^3/cmm (157-399); Red Blood Count 3.64 10^6/uL (3.85-5.65); White Blood Count 4.04 10^3/uL (3.29-11.43)
[2025-04-23 12:13] LABS: Carcinoembryonic Antigen 1.4 ng/mL (0.0-4.7)
[2025-04-23 12:24] LABS: Alanine Aminotransferase 14 U/L (0-41); Albumin Level 3.8 g/dL (3.5-5.2); Alkaline Phosphatase 103 U/L (40-130); Anion Gap 13.5 (5-19); Aspartate Amino Transferase 21 U/L (0-40); Blood Urea Nitrogen 8 mg/dL (8-23); Calcium 8.6 mg/dL (8.5-10.5); Carbon Dioxide 26 mmol/L (22-29); Chloride 97 mmol/L (98-107); Creatinine Clr Calc Pharmacy 78.1515; Globulin 2.6 g/dL (1.3-4.6); Glucose 91 mg/dL (65-115); Osmolality Calculated 272 mOsm/kg (285-295); Potassium 4.5 mmol/L (3.5-5.1); Sodium 132 mmol/L (136-145); Total Protein 6.4 g/dL (6.6-8.7)
== END 2025-05-17 23:59 | disposition home or self-care (01) ==
PROVIDERS: Internal Medicine; PCP Nurse Practitioner; Visit Provider Internal Medicine Cardiovascular Disease
DX: D50.9 Iron deficiency anemia, unspecified (principal); K63.89 Other specified diseases of intestine; F17.210 Nicotine dependence, cigarettes, uncomplicated; Z95.2 Presence of prosthetic heart valve; Z79.01 Long term (current) use of anticoagulants; Z71.6 Tobacco abuse counseling
CPT/HCPCS: 36415; 80053; 82378; 85025; 99213

== ENCOUNTER → 2025-07-23 13:05 | Outpatient (BNVA) | payer OTHER, SELFPAY | PROVIDERS: PCP Nurse Practitioner; Visit Provider Student in an Organized Health Care Education/Training Program | DX: R03.0 Elevated blood-pressure reading, without diagnosis of hypertension (principal) | CPT/HCPCS: 99213 ==

== ENCOUNTER 2025-08-07 09:25 | Oncology outpatient (recurring) (ONCR) | payer OTHER, SELFPAY ==
[2025-08-07 09:45] LABS: Hematocrit 38.6 % (37-53); Hemoglobin 13.40 g/dL (11.27-16.99); Mean Corpuscular HGB Conc 34.7 g/dL (30-55); Mean Corpuscular Hemoglobin 31.5 pg (27-33); Mean Corpuscular Volume 90.6 fl (82-101); Nucleated Red Blood Cells % 0 %; Platelet Count 270 10^3/cmm (157-399); Red Blood Count 4.26 10^6/uL (3.85-5.65); White Blood Count 4.68 10^3/uL (3.29-11.43)
[2025-08-07 10:13] LABS: Alanine Aminotransferase 13 U/L (0-41); Albumin Level 4.1 g/dL (3.5-5.2); Alkaline Phosphatase 119 U/L (40-130); Anion Gap 14.1 (5-19); Aspartate Amino Transferase 23 U/L (0-40); Blood Urea Nitrogen 9 mg/dL (8-23); Calcium 8.8 mg/dL (8.5-10.5); Carbon Dioxide 25 mmol/L (22-29); Chloride 95 mmol/L (98-107); Ferritin 97 ng/mL (30-400); Globulin 2.8 g/dL (1.3-4.6); Glucose 114 mg/dL (65-115); Iron 106 ug/dL (59-158); Osmolality Calculated 270 mOsm/kg (285-295); Potassium 4.1 mmol/L (3.5-5.1); Sodium 130 mmol/L (136-145); Total Iron Binding Capacity 274 mcg/dl; Total Protein 6.9 g/dL (6.6-8.7); Unsaturated Iron Binding 168 ug/dL (112-347)
[2025-08-07 10:47] LABS: Carcinoembryonic Antigen 1.3 ng/mL (0.0-4.7)
== END 2025-08-16 23:59 | disposition home or self-care (01) ==
PROVIDERS: Internal Medicine; PCP Nurse Practitioner; Visit Provider Internal Medicine Cardiovascular Disease
DX: K63.89 Other specified diseases of intestine (principal); D50.9 Iron deficiency anemia, unspecified; Z72.0 Tobacco use; Z79.01 Long term (current) use of anticoagulants; Z95.2 Presence of prosthetic heart valve
CPT/HCPCS: 36415; 80053; 82378; 82728; 83010; 83540; 83550; 83615; 85025; 85045; 99213